=== PATIENT | female | born 1990 | race Caucasian/White ===

== ENCOUNTER → 2018-03-19 | Outpatient (CLI) | payer BC | END | disposition home or self-care (01) | LOC: MRI 08:13 | DX: M51.37 Other intervertebral disc degeneration, lumbosacral region (principal); M48.061 Spinal stenosis, lumbar region without neurogenic claudication; D18.09 Hemangioma of other sites | CPT/HCPCS: 72148 ==

== ENCOUNTER → 2020-09-21 | Outpatient (CLI) | payer OTHER, BC ==
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
== END ==
LOC: KCIC MRI 14:45
PROVIDERS: ATTEND Physician Assistant Medical
DX: S14.105A Unspecified injury at C5 level of cervical spinal cord, initial encounter (principal); M48.02 Spinal stenosis, cervical region; M25.78 Osteophyte, vertebrae; X58.XXXA Exposure to other specified factors, initial encounter; Y93.89 Activity, other specified; Y92.89 Other specified places as the place of occurrence of the external cause; Y99.8 Other external cause status
CPT/HCPCS: 72141

== ENCOUNTER → 2020-10-18 | Outpatient (CLI) | payer OTHER, BC ==
[~2020-10-18] MED LIST: IBUP-1007 PO; birth control
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
== END | disposition home or self-care (01) ==
LOC: PNCL 13:26
PROVIDERS: ATTEND Anesthesiology
DX: M25.512 Pain in left shoulder (principal); M25.511 Pain in right shoulder; M54.2 Cervicalgia; Z79.899 Other long term (current) drug therapy
CPT/HCPCS: G0463